=== PATIENT | male | born 1980 | race Hispanic/Latino ===

== ENCOUNTER 2019-05-18 13:34 | Outpatient (CLI) | payer BC ==
--- NOTE | 2019-05-18 13:57 | RAD ---
Exam: Chest one view HISTORY:Intermittent shortness of breath. Comparison: None FINDINGS: Cardiac silhouette: Normal Aorta: Unremarkable Pulmonary vessels: Normal Costophrenic angles: Clear LUNGS: No masses or consolidation. Pneumothorax: None Osseous abnormalities: None IMPRESSION: No acute cardiopulmonary process.
== END 2019-05-18 13:35 | disposition home or self-care (01) ==
LOC: BICRAD 13:34
PROVIDERS: ATTEND Family Medicine
DX: R91.8 Other nonspecific abnormal finding of lung field (principal)
CPT/HCPCS: 71045